=== PATIENT | female | born 2000 | race Two or more races ===

== ENCOUNTER 2018-11-11 13:51 | Emergency (ER) | payer OTHER ==
[~2018-11-11] VITALS: Ht 160 cm; Wt 59.9 kg
[2018-11-11 14:38] LABS: Urine WBC None Seen /hpf (0 - 5)
[2018-11-11 15:01] LABS: Urine Bacteria FEW /hpf (None Seen); Urine Blood Negative /uL (Negative); Urine Mucus FEW (None Seen)
[2018-11-11 17:11] VITALS: BP 123/79
[2018-11-11] MEDS ORDERED: IBUPROFEN 600 MG TAB PO ONE (17:30)
== END 2018-11-11 18:12 | disposition home or self-care (01) ==
LOC: ER 13:51
DX: S00.03XA Contusion of scalp, initial encounter (principal); W17.89XA Other fall from one level to another, initial encounter; Y93.89 Activity, other specified; Y92.89 Other specified places as the place of occurrence of the external cause; Y99.0 Civilian activity done for income or pay
CPT/HCPCS: 70450; 81001; 81025

== ENCOUNTER 2020-04-11 14:45 | Emergency (ER) | payer MEDICAID, OTHER ==
[~2020-04-11] VITALS: Ht 160 cm; Wt 63.5 kg
[2020-04-11 15:45] LABS: Urine Bacteria FEW /hpf (None Seen); Urine Blood Negative /uL (Negative); Urine Specific Gravity 1.009 (1.001-1.035); Urine WBC 1 /hpf (0 - 5)
[2020-04-11 15:48] VITALS: BP 147/99
== END 2020-04-11 16:32 | disposition home or self-care (01) ==
LOC: ER 14:45
DX: S39.012A Strain of muscle, fascia and tendon of lower back, initial encounter (principal); N39.0 Urinary tract infection, site not specified; X58.XXXA Exposure to other specified factors, initial encounter; Y93.89 Activity, other specified; Y92.89 Other specified places as the place of occurrence of the external cause; Y99.8 Other external cause status
CPT/HCPCS: 81001

== ENCOUNTER 2021-10-12 23:31 | Emergency (ER) | payer SELFPAY ==
[~2021-10-12] VITALS: Ht 162.6 cm; Wt 68.2 kg
[2021-10-13 00:53] VITALS: BP 154/94
[2021-10-13] MEDS ORDERED: PROM1SOL4 PO (02:55)
== END 2021-10-13 03:03 | disposition home or self-care (01) ==
LOC: ER 23:31
DX: U07.1 COVID-19 (principal)
CPT/HCPCS: 36415; 71045